=== PATIENT | male | born 1975 | race Caucasian/White ===

== ENCOUNTER 2016-03-19 13:36 | Emergency (ER) | payer OTHER ==
[2016-03-19 13:48] VITALS: BP 129/85; PULSE 62; TEMP 97.8; BMI 26.9
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
== END 2016-03-19 15:32 | disposition home or self-care (01) ==
LOC: JERFT 13:36
DX: S40.022A Contusion of left upper arm, initial encounter (principal); Y04.1XXA Assault by human bite, initial encounter; Y35.811A Legal intervention involving manhandling, law enforcement official injured, initial encounter; Y93.89 Activity, other specified; Y92.89 Other specified places as the place of occurrence of the external cause; Y99.0 Civilian activity done for income or pay
CPT/HCPCS: 99281-25

== ENCOUNTER 2016-08-01 09:46 | Emergency (ER) | payer OTHER ==
[2016-08-01 09:51] VITALS: BP 123/69; PULSE 73; TEMP 98.5; BMI 26.9
[2016-08-01 11:10] LABS: BASOPHIL 1.2 % (0-2.0); EOSINOPHIL 1.5 % (0-4.5); MCH 31.2 pg (25.7-33.7); MCHC 33.6 g/dl (32.0-35.9); MEAN CELL VOLUME 92.8 fl (80-96); MEAN PLT VOLUME 8.2 fl (7.5-11.1); PLATELET COUNT 230 K/MM3 (134-434); RDW 13.3 % (11.9-15.9); WHITE BLOOD COUNT 4.9 K/mm3 (4.0-10.0)
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
[2016-08-01 11:35] LABS: ALBUMIN 4.4 g/dl (3.4-5.0); ANION GAP 6 (8-16); CALCIUM 9.6 mg/dL (8.5-10.1); CO2 29 mmol/L (21-32); COCKROFT - GAULT 111.35; CREATININE 1.2 mg/dL (0.7-1.3); GLUCOSE,RANDOM 88 mg/dL (74-106); SGOT/AST 34 U/L (15-37); SGPT/ALT 27 U/L (12-78)
[2016-08-01 11:39] LABS: ALK PHOS 89 U/L (45-117); BILIRUBIN,TOTAL 0.4 mg/dL (0.2-1.0); CHOLESTEROL 175 mg/dL (50-200); LDH 244 U/L (87-241); PHOSPHOROUS 2.8 mg/dL (2.5-4.9); TOT PROT 7.6 g/dl (6.4-8.2)
[2016-08-01 12:33] LABS: HIV 1 & 2 AB NEGATIVE; HIV 1 AGp24 NEGATIVE
== END 2016-08-01 12:49 | disposition home or self-care (01) ==
LOC: JERFT 09:46
PROC: 2W3DX1Z Immobilization of Left Lower Arm using Splint (ICD-10-PCS; principal; 2016-08-01)
DX: Z77.21 Contact with and (suspected) exposure to potentially hazardous body fluids (principal); S62.112A Displaced fracture of triquetrum [cuneiform] bone, left wrist, initial encounter for closed fracture; X58.XXXA Exposure to other specified factors, initial encounter; Y35.891A Legal intervention involving other specified means, law enforcement official injured, initial encounter; Y99.0 Civilian activity done for income or pay
CPT/HCPCS: 36415; 73110-TC-LT; 80053; 82465; 82977; 83615; 84100; 84478; 85025; 86704; 86706; 87340; 87389; 99283-25

== ENCOUNTER 2018-03-06 14:38 | Emergency (ER) | payer OTHER ==
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
[2018-03-06 14:47] VITALS: BP 152/77; PULSE 76; TEMP 98.7; BMI 27.6
[2018-03-06] MEDS ORDERED: IBUPROFEN 400 MG TABLET (FP) PO ONE (15:38)
--- NOTE | 2018-03-06 15:38 | PDOC ---
History of Present Illness - General Chief Complaint: Injury Stated Complaint: INJURY-[employer] Time Seen by Provider: 03/06/18 14:42 History Source: Patient Exam Limitations: No Limitations Past History - Travel Traveled outside of the country in the last 30 days: No Close contact w/someone who was outside of country & ill: No - Past Medical History Allergies/Adverse Reactions: Allergies Allergy/AdvReac Type Severity Reaction Status Date / Time No Known Allergies Allergy Verified 08/19/17 16:46 Home Medications: Ambulatory Orders NK [No Known Home Medication] 05/18/15 COPD: No - Immunization History Immunization Up to Date: Yes - Suicide/Smoking/Psychosocial Hx Smoking Status: No Smoking History: Never smoked Have you smoked in the past 12 months: No Number of Cigarettes Smoked Daily: 2 Information on smoking cessation initiated: No Hx Alcohol Use: No Drug/Substance Use Hx: No Substance Use Type: None Review of Systems - Review of Systems Able to Perform ROS?: Yes Comments:: 03/06/18 15:35 CONSTITUTIONAL: Absent: fever, chills, diaphoresis, generalized weakness, malaise, loss of appetite HEENT: Absent: rhinorrhea, nasal congestion, throat pain, throat swelling, difficulty swallowing, mouth swelling, ear pain, eye pain, visual Changes CARDIOVASCULAR: Absent: chest pain, loss of consciousness, palpitations, irregular heart rate, peripheral edema RESPIRATORY: Absent: cough, shortness of breath, dyspnea with exertion, orthopnea, wheezing, stridor, hemoptysis GASTROINTESTINAL: Absent: abdominal pain, abdominal distension, nausea, vomiting, diarrhea, constipation, melena, hematochezia GENITOURINARY: Absent: dysuria, frequency, urgency, hesitancy, hematuria, flank pain, genital pain MUSCULOSKELETAL: Absent: myalgia, arthralgia, joint swelling SKIN: Absent: rash, itching, pallor HEMATOLOGIC/IMMUNOLOGIC: Absent: easy bleeding, easy bruising, lymphadenopathy, frequent infections ENDOCRINE: Absent: unexplained weight gain, unexplained weight loss, heat intolerance, cold intolerance NEUROLOGIC: Absent: headache, focal weakness or paresthesias, dizziness, unsteady gait, seizure, mental status changes, bladder or bowel incontinence PSYCHIATRIC: Absent: anxiety, depression, suicidal or homicidal ideation, hallucinations. Is the patient limited Danish proficient: No *Physical Exam - Vital Signs Last Vital Signs Temp Pulse Resp BP Pulse Ox 98.7 F 76 18 152/77 98 03/06/18 14:44 03/06/18 14:44 03/06/18 14:44 03/06/18 14:44 03/06/18 14:44 - Physical Exam Comments: 03/06/18 15:35 GENERAL: The patient is awake, alert, and fully oriented, in no acute distress. HEAD: Normal with no signs of trauma. EYES: Pupils equal, round and reactive to light, extraocular movements intact, sclera anicteric, conjunctiva clear. EXTREMITIES: Normal range of motion, no edema. NEUROLOGICAL: Normal speech, normal gait. PSYCH: Normal mood, normal affect. SKIN: Warm, Dry, normal turgor, no rashes or lesions noted. Moderate Sedation - Procedure Monitoring Vital Signs: Procedure Monitoring Vital Signs Temperature 98.7 F 03/06/18 14:44 Pulse Rate 76 03/06/18 14:44 Respiratory Rate 18 03/06/18 14:44 Blood Pressure 152/77 03/06/18 14:44 O2 Sat by Pulse Oximetry (%) 98 03/06/18 14:44 *DC/Admit/Observation/Transfer Diagnosis at time of Disposition: Elbow injury Qualifiers: Encounter type: initial encounter Laterality: right Qualified Code(s): S59.901A - Unspecified injury of right elbow, initial encounter - Discharge Dispostion Disposition: HOME Condition at time of disposition: Stable Decision to Admit order: No - Referrals Referrals: Erwin Medina MD [Staff Physician] - - Patient Instructions Printed Discharge Instructions: DI for Elbow Pain Additional Instructions: You have elbow pain Your x-ray is negative for fracture Ice the area to help reduce swelling Take Motrin 800mg every 8 hours for pain and swelling not to exceed 3000 mg a day If your symptoms do not resolve in 3-5 days, please follow up with orthopedics Return to the ED for any new or worsening symptoms - Post Discharge Activity Forms/Work/School Notes: Back to Work
== END 2018-03-06 16:01 | disposition home or self-care (01) ==
LOC: JERFT 14:38
DX: S59.801A Other specified injuries of right elbow, initial encounter (principal); Y35.811A Legal intervention involving manhandling, law enforcement official injured, initial encounter; Y93.89 Activity, other specified; Y92.89 Other specified places as the place of occurrence of the external cause; Y99.0 Civilian activity done for income or pay
CPT/HCPCS: 73070-TC-RT-FY; 99281-25

== ENCOUNTER 2018-03-12 09:43 | Emergency (ER) | payer OTHER ==
[2018-03-12 09:50] VITALS: BP 117/74; PULSE 68; TEMP 98.4; BMI 29.1
--- NOTE | 2018-03-12 10:23 | PDOC ---
History of Present Illness - General Chief Complaint: Injury Stated Complaint: INJURY/[employer] Time Seen by Provider: 03/12/18 09:59 History Source: Patient Exam Limitations: No Limitations Past History - Past Medical History Allergies/Adverse Reactions: Allergies Allergy/AdvReac Type Severity Reaction Status Date / Time No Known Allergies Allergy Verified 03/12/18 10:13 Home Medications: Ambulatory Orders NK [No Known Home Medication] 05/18/15 COPD: No - Immunization History Immunization Up to Date: Yes - Suicide/Smoking/Psychosocial Hx Smoking Status: No Smoking History: Never smoked Have you smoked in the past 12 months: No Number of Cigarettes Smoked Daily: 2 Information on smoking cessation initiated: No Hx Alcohol Use: No Drug/Substance Use Hx: No Substance Use Type: None Trauma Specific PMHX - Complaint Specific PMHX Back Injury: No Neck Injury: No *Physical Exam - Vital Signs Last Vital Signs Temp Pulse Resp BP Pulse Ox 98.4 F 68 18 117/74 100 03/12/18 09:47 03/12/18 09:47 03/12/18 09:47 03/12/18 09:47 03/12/18 09:47 - Physical Exam General Appearance: No: Apparent Distress Musculoskeletal: positive: Other (Minimal subungual hematoma at base of nail of L index finger, minimal swelling of finger, able to flex and extend L DIP, no other trauma noted to finger) Neurologic: positive: Alert, Normal Mood/Affect Moderate Sedation - Procedure Monitoring Vital Signs: Procedure Monitoring Vital Signs Temperature 98.4 F 03/12/18 09:47 Pulse Rate 68 03/12/18 09:47 Respiratory Rate 18 03/12/18 09:47 Blood Pressure 117/74 03/12/18 09:47 O2 Sat by Pulse Oximetry (%) 100 03/12/18 09:47 ED Treatment Course - RADIOLOGY Radiology Studies Ordered: Category Date Time Status FINGER(S) LEFT [RAD] Stat Radiology 03/12/18 10:22 Ordered Medical Decision Making - Medical Decision Making 42 y/o M with no sig PMH, [employer], presents with accidentally getting L index finger slammed in car door. Denies other complaints Xray negative for fracture Only with minimal subungal hematoma, which is not causing patient pain stable for d/c 03/12/18 10:23 *DC/Admit/Observation/Transfer Diagnosis at time of Disposition: Subungual hematoma of finger Qualifiers: Encounter type: initial encounter Qualified Code(s): S60.10XA - Contusion of unspecified finger with damage to nail, initial encounter - Discharge Dispostion Disposition: HOME Condition at time of disposition: Stable Decision to Admit order: No - Referrals - Patient Instructions Printed Discharge Instructions: DI for Subungual Hematoma Additional Instructions: Thank you for choosing [facility]. It was a pleasure taking care of you. Your x-ray was negative for fracture You may small amount of blood underneath your nail which will go away on its own Apply cold compresses to finger may also help Return to the Emergency Department if your symptoms worsen or persist or have other concerning symptoms. - Post Discharge Activity
== END 2018-03-12 11:01 | disposition home or self-care (01) ==
LOC: JERFT 09:43
DX: S60.10XA Contusion of unspecified finger with damage to nail, initial encounter (principal); W23.0XXA Caught, crushed, jammed, or pinched between moving objects, initial encounter; Y93.89 Activity, other specified; Y92.89 Other specified places as the place of occurrence of the external cause; Y99.0 Civilian activity done for income or pay
CPT/HCPCS: 73140-TC-LT-FY; 99281-25

== ENCOUNTER 2018-07-16 14:54 | Emergency (ER) | payer OTHER | END 2018-07-16 16:07 | disposition home or self-care (01) | LOC: JERFT 14:54 ==

== ENCOUNTER 2024-11-30 10:01 | Day surgery (SDC) | payer OTHER ==
[2024-11-24 15:03] VITALS: BMI 26.9
[2024-11-30] MEDS ORDERED: PROPOFOL 20 ML ONE ×3 (11:38→13:24)
[2024-11-30] MEDS ORDERED: MIDAZOLAM HCL 2 MG/2 ML SINGLE DOSE VIAL ONE ×2 (11:39)
[2024-11-30] MEDS ORDERED: EPINEPHrine 1:1,000 1,000 MCG/ML ML ONE (11:44)
[2024-11-30] MEDS ORDERED: BUPIVACAINE HCL/EPINEPHRINE/PF 30 ML VIAL IJ ONE (11:44)
[2024-11-30] MEDS ORDERED: ROPIVACAINE HCL/PF 100 MG/20 ML VIAL ONE (11:44)
[2024-11-30] MEDS ORDERED: ACETAMINOPHEN INJECTION 100 ML ONE (11:45)
[2024-11-30] MEDS ORDERED: DEXAMETHASONE SOD PHOSPHATE 10 MG/1 ML VIAL ONE (11:45)
[2024-11-30] MEDS ORDERED: ONDANSETRON 4 MG/2 ML VIAL IVPUSH PRN (12:10)
[2024-11-30] MEDS ORDERED: PROMETHAZINE HCL 25 MG/1 ML VIAL IVPB PRN (12:10)
[2024-11-30] MEDS ORDERED: LACTATED RINGERS SOLUTION 1,000 ML IV SCH (12:15)
[2024-11-30] MEDS ORDERED: ONDANSETRON 4 MG/2 ML VIAL ONE (13:41)
[2024-11-30 15:11] VITALS: RESP 18; TEMP 97.5
[2024-11-30 15:43] VITALS: BP 144/89; PULSE 71
== END 2024-11-30 16:05 | disposition home or self-care (01) ==
LOC: FASU 10:01
PROVIDERS: ATTEND Orthopaedic Surgery
PROC: 0RNK4ZZ Release Left Shoulder Joint, Percutaneous Endoscopic Approach (ICD-10-PCS; principal; 2024-11-30 13:03)
PROC: 0LS24ZZ Reposition Left Shoulder Tendon, Percutaneous Endoscopic Approach (ICD-10-PCS; 2024-11-30 13:03)
PROC: 0RBK4ZZ Excision of Left Shoulder Joint, Percutaneous Endoscopic Approach (ICD-10-PCS; 2024-11-30 13:03)
DX: S46.012D Strain of muscle(s) and tendon(s) of the rotator cuff of left shoulder, subsequent encounter (principal); M75.02 Adhesive capsulitis of left shoulder; M65.822 Other synovitis and tenosynovitis, left upper arm; S43.432D Superior glenoid labrum lesion of left shoulder, subsequent encounter; M75.52 Bursitis of left shoulder; Y99.9 Unspecified external cause status
CPT/HCPCS: 88304-TC; 94760; C1713; J1100